=== PATIENT | male | born 1975 | race Caucasian/White ===

== ENCOUNTER 2017-04-26 10:23 | Emergency (ER) | payer OTHER ==
[2017-04-26 10:26] VITALS: BP 127/78; PULSE 88; TEMP 98.5; BMI 27.4
[2017-04-26] MEDS ORDERED: KETOROLAC TROMETHAMINE 60 MG/2 ML VIAL IM ONE (11:39)
--- NOTE | 2017-04-26 11:39 | PDOC ---
History of Present Illness - General Chief Complaint: Pain Stated Complaint: RT FOOT PAIN Time Seen by Provider: 04/26/17 10:56 History Source: Patient Exam Limitations: No Limitations - History of Present Illness Initial Comments: 04/26/17 12:08 Patient here with foot pain 2 days. has progressive worsening of swelling, redness, and pain at MTP of first tarsal right foot. No history of gout, no history of trauma. Denies fever, any sores or purulent drainage from area. States works in the [employer] and does frequent lifting carrying and standing. Has taken no medication for relief of pain or swelling Occurred: reports: just prior to arrival Severity: reports: mild, moderate Pain Location: reports: none Modifying Factors: improves with: None Past History - Travel Traveled outside of the country in the last 30 days: No Close contact w/someone who was outside of country & ill: No - Past Medical History Allergies/Adverse Reactions: Allergies Allergy/AdvReac Type Severity Reaction Status Date / Time No Known Allergies Allergy Verified 04/26/17 10:26 Home Medications: Ambulatory Orders Indomethacin [Indocin -] 25 mg PO TID #21 capsule 04/26/17 - Surgical History Appendectomy: Yes - Suicide/Smoking/Psychosocial Hx Smoking History: Current every day smoker Have you smoked in the past 12 months: Yes Number of Cigarettes Smoked Daily: 4 Information on smoking cessation initiated: Yes 'Breaking Loose' booklet given: 04/26/17 Hx Alcohol Use: No Drug/Substance Use Hx: No Substance Use Type: None Trauma Specific PMHX - Complaint Specific PMHX Back Injury: No Neck Injury: No Review of Systems - Review of Systems Able to Perform ROS?: Yes Is the patient limited French proficient: Yes Constitutional: Yes: Symptoms Reported, See HPI, Malaise HEENTM: Yes: See HPI. No: Symptoms Reported Musculoskeletal: Yes: Symptoms Reported, See HPI, Joint Pain, Joint Swelling, Muscle Pain Integumentary: Yes: Symptoms Reported, Erythema Neurological: No: Symptoms reported All Other Systems: Reviewed and Negative *Physical Exam - Vital Signs Last Vital Signs Temp Pulse Resp BP Pulse Ox 98.5 F 88 17 127/78 100 04/26/17 10:24 04/26/17 10:24 04/26/17 10:24 04/26/17 10:24 04/26/17 10:24 - Physical Exam General Appearance: Yes: Nourished, Appropriately Dressed, Apparent Distress, Mild Distress HEENT: positive: Normal ENT Inspection, TMs Normal, Pharynx Normal Neck: positive: Supple. negative: Lymphadenopathy (R), Lymphadenopathy (L) Respiratory/Chest: positive: Lungs Clear Gastrointestinal/Abdominal: positive: Soft. negative: Tender Musculoskeletal: positive: Normal Inspection Extremity: positive: Normal Capillary Refill, Normal Inspection, Erythema (with swelling to MTP right foot ). negative: Calf Tenderness Integumentary: positive: Normal Color Neurologic: positive: hospice/home health aide II-XII NML intact, Fully Oriented, Alert, Normal Response, Motor Strength 5/5 Progress Note - Progress Note Progress Note: X-ray negative for fractures or dislocations, cLINICAL indication of gout, will treat with high-dose NSAIDs and have follow-up with PMD for further evaluation and possible chronic therapy. *DC/Admit/Observation/Transfer Diagnosis at time of Disposition: Gout Qualifiers: Gout site: toe Gout etiology: unspecified cause Chronicity: acute Laterality: right Qualified Code(s): M10.9 - Gout, unspecified; M10.9 - Gout, unspecified - Discharge Dispostion Disposition: HOME Condition at time of disposition: Stable Admit: No - Patient Instructions Printed Discharge Instructions: DI for Gout Additional Instructions: Rest, ice to area on and off for 15 minutes 4-6 times a day Avoid heavy lifting or exercise until pain and swelling is resolved or until further directed Keep area highly elevated to reduce swelling Use splints/Eric wrap as directed Followup with orthopedist in one to 2 days if not improving, if significantly improved may wait one week for followup with orthopedist May use ibuprofen 2-200 mg tablets every 6 hours as needed for pain - Post Discharge Activity Forms/Work/School Notes: Back to Work
[2017-04-26] MEDS ORDERED: KETOROLAC TROMETHAMINE 60 MG/2 ML VIAL ONE (11:45)
== END 2017-04-26 12:55 | disposition home or self-care (01) ==
LOC: JERFT 10:23
PROC: 3E0233Z Introduction of Anti-inflammatory into Muscle, Percutaneous Approach (ICD-10-PCS; principal; 2017-04-26)
DX: M10.9 Gout, unspecified (principal); F17.210 Nicotine dependence, cigarettes, uncomplicated
CPT/HCPCS: 73630-TC-RT; 96372; 99281-25

== ENCOUNTER 2019-02-03 20:37 | Emergency (ER) | payer OTHER ==
[2019-02-03 20:41] VITALS: BP 149/72; PULSE 84; TEMP 98.2; BMI 27.4
--- NOTE | 2019-02-03 20:43 | PDOC ---
Rapid Medical Evaluation Chief Complaint: Pain Time Seen by Provider: 02/03/19 20:39 Medical Evaluation: Allergies Allergy/AdvReac Type Severity Reaction Status Date / Time No Known Allergies Allergy Verified 04/26/17 10:26 02/03/19 20:40 I have performed a brief in-person evaluation of this patient. The patient presents with a chief complaint of: Right foot pain x 3 days- was playing in park with kids - kicking injury? Pertinent physical exam findings: swelling and pain to dorsum midfoot I have ordered the following: Xray Foot - right The patient will proceed to the ED for further evaluation. 02/03/19 20:42 Discharge Disposition - Diagnosis Pain - Referrals - Patient Instructions - Post Discharge Activity
[2019-02-03] MEDS ORDERED: KETOROLAC TROMETHAMINE 30 MG/1 ML VIAL IM ONE (21:40)
--- NOTE | 2019-02-03 21:40 | PDOC ---
History of Present Illness - General Chief Complaint: Pain Stated Complaint: FOOT PAIN Time Seen by Provider: 02/03/19 20:39 History Source: Patient Exam Limitations: No Limitations - History of Present Illness Initial Comments: 02/03/19 21:34 HISTORY OF PRESENT ILLNESS: 43-year-old male denies medical history presents emergency department for evaluation of atraumatic right foot pain for 10 days. Patient states she was playing in the park with his daughter approximately 10 days ago. After placing in the parking noted pain to his right foot. On investigation patient reports he was playing soccer and running around frequently but does not murmur taking anything hard or the exact moment before the pain had started. Patient has been taking [id number] NSAID medication with the last dose being at approximately noon today. He denies fevers or chills. Patient reports the pain gets worse with flexion and extension of his second toe of the right foot. No recent travel or sick contacts. PAST MEDICAL HISTORY: Denies past medical history SURGICAL HISTORY: Denies ALLERGIES: No known drug allergies REVIEW OF SYSTEMS General/Constitutional: Denies fever or chills. Denies weakness, weight change. HEENT: Denies change in vision. Denies ear pain or discharge. Denies sore throat. Cardiovascular: Denies chest pain or shortness of breath. Respiratory: Denies cough, wheezing, or hemoptysis. Gastrointestinal: Denies nausea, vomiting, diarrhea or constipation. Denies rectal bleeding. Genitourinary: Denies dysuria, frequency, or change in urination. Musculoskeletal: see HPI Skin and breasts: Denies rash or easy bruising. Neurologic: Denies headache, vertigo, loss of consciousness, or loss of sensation. Psychiatric: Denies depression or anxiety. Endocrine: Denies increased thirst. Denies abnormal weight change. Hematologic/Lymphatic: Denies anemia, easy bleeding, or history of blood clots. Allergic/Immunologic: Denies hives or skin allergy. Denies latex allergy. PHYSICAL EXAM General Appearance: Well-appearing, appropriately dressed. No apparent distress , no intoxication. Respiratory/Chest: Lungs CTAB. No shortness of breath, chest tenderness, respiratory distress, accessory muscle use. No crackles, rales, rhonchi, stridor , wheezing, dullness Cardiovascular: RRR. S1, S2. No JVD, murmur, bradycardia, tachycardia. Vascular Pulses: Dorsalis-Pedis (R): 2+, Dorsalis-Pedis (L): 2+ Musculoskeletal/Extremities: Erythema present to the dorsum of the right midfoot. Increased pain and tenderness with flexion and extension of second and third digits of the right foot. Neurovascular intact. Integumentary: Appropriate color, dry, warm. No cyanosis, erythema, jaundice or rash Neurologic: blending line attendant II-XII intact. Fully oriented, alert. Appropriate mood/affect. Motor strength 5/5. No appreciable EOM palsy, facial droop or sensory deficit. Past History - Past Medical History Allergies/Adverse Reactions: Allergies Allergy/AdvReac Type Severity Reaction Status Date / Time No Known Allergies Allergy Verified 02/03/19 20:41 Home Medications: Ambulatory Orders Indomethacin [Indocin -] 25 mg PO TID #21 capsule 04/26/17 COPD: No - Surgical History Appendectomy: Yes - Suicide/Smoking/Psychosocial Hx Smoking History: Never smoked Have you smoked in the past 12 months: Yes Number of Cigarettes Smoked Daily: 4 'Breaking Loose' booklet given: 04/26/17 Hx Alcohol Use: No Drug/Substance Use Hx: No Substance Use Type: None *Physical Exam - Vital Signs Last Vital Signs Temp Pulse Resp BP Pulse Ox 98.2 F 84 18 149/72 97 02/03/19 20:39 02/03/19 20:39 02/03/19 20:39 02/03/19 20:39 02/03/19 20:39 Medical Decision Making - Medical Decision Making 02/03/19 21:40 A/P: 43-year-old male with atraumatic right foot pain for 10 days. Fracture versus tendinitis X-rays as read by me: No acute fracture or dislocation is present Toradol 30 mg IM now Discharge home with podiatry follow-up I discussed the physical exam findings, ancillary test results and final diagnoses with the patient. I answered all of the patient's questions. The patient was satisfied with the care received and felt comfortable with the discharge plan and treatment plan. The patient will call their primary care physician within 24 hours to arrange follow-up and will return to the Emergency Department with any new, persistent or worsening symptoms. *DC/Admit/Observation/Transfer Diagnosis at time of Disposition: Extensor tendonitis of foot - Discharge Dispostion Disposition: HOME Condition at time of disposition: Stable Decision to Admit order: No - Referrals Referrals: Arlene Santiago MD [Primary Care Provider] - Rufus Jacome MD [Staff Physician] - - Patient Instructions Printed Discharge Instructions: DI for Tendinitis Additional Instructions: Rest. Take Tylenol or Motrin as needed for pain. Follow manufacturers instructions for appropriate dosage. Apply ice for 20 minutes and removed for at least 20 minutes before reapplying the ice. Whenever possible keep your foot elevated. You've been given the number for integrity specialist. If symptoms do not resolve within the next 7 days call for further evaluation. Return to emergency department for discoloration of the foot, numbness or tingling to the foot, worsening pain, or any other concerns. Thank you very much for choosing us to provide your emergent healthcare needs. Print Language: MALAY - Post Discharge Activity
[2019-02-03] MEDS ORDERED: KETOROLAC TROMETHAMINE 30 MG/1 ML VIAL ONE (21:57)
== END 2019-02-03 22:00 | disposition home or self-care (01) ==
LOC: JERFT 20:37
PROC: 3E0233Z Introduction of Anti-inflammatory into Muscle, Percutaneous Approach (ICD-10-PCS; principal; 2019-02-03)
DX: M77.9 Enthesopathy, unspecified (principal); X58.XXXA Exposure to other specified factors, initial encounter; Y93.66 Activity, soccer; Y92.322 Soccer field as the place of occurrence of the external cause; Z87.891 Personal history of nicotine dependence
CPT/HCPCS: 73630-TC-RT-FY; 99281-25

== ENCOUNTER 2023-05-31 16:17 | Emergency (ER) | payer OTHER ==
[2023-05-31 16:29] VITALS: BP 118/77; PULSE 94; RESP 18; TEMP 98.7; BMI 27.4
[2023-05-31] MEDS ORDERED: KETOROLAC TROMETHAMINE 30 MG/1 ML VIAL IM ONE (17:32)
[2023-05-31] MEDS ORDERED: ACETAMINOPHEN 500 MG TABLET (FP) PO ONE (17:32)
[2023-05-31] MEDS ORDERED: ACETAMINOPHEN 500 MG TABLET (FP) ONE (17:56)
[2023-05-31] MEDS ORDERED: KETOROLAC TROMETHAMINE 30 MG/1 ML VIAL ONE (17:56)
== END 2023-05-31 19:34 | disposition home or self-care (01) ==
LOC: JERFT 16:17
PROC: 3E0233Z Introduction of Anti-inflammatory into Muscle, Percutaneous Approach (ICD-10-PCS; principal; 2023-05-31)
DX: M79.671 Pain in right foot (principal); M72.2 Plantar fascial fibromatosis; M77.32 Calcaneal spur, left foot
CPT/HCPCS: 73630-TC-RT-FY; 99284-25